=== PATIENT | female | born 1990 | race Caucasian/White ===

== ENCOUNTER 2021-01-20 10:05 | Day surgery (SDC) | payer OTHER | END 2021-01-20 18:00 | disposition home or self-care (01) | LOC: CIR.AMB 10:05 | PROVIDERS: ATTEND Obstetrics & Gynecology | DX: O02.1 Missed abortion (principal); Z20.822 Contact with and (suspected) exposure to COVID-19 ==

== ENCOUNTER 2021-11-04 10:41 | Outpatient (CLI) | payer OTHER | END 2021-11-04 11:25 | disposition home or self-care (01) | LOC: NST 10:41 | PROVIDERS: ATTEND Obstetrics & Gynecology | DX: Z34.83 Encounter for supervision of other normal pregnancy, third trimester (principal) ==

== ENCOUNTER 2021-11-10 14:20 | Inpatient (IN) | payer OTHER ==
[~2021-11-10] VITALS: Ht 162.6 cm; Wt 1.4 kg
[2021-11-10] MEDS ORDERED: OMEGA-31000 MG PO (15:39)
[2021-11-10] MEDS ORDERED: PRENATAL CAPLE1 EAC1 PO (15:39)
== END 2021-11-15 14:07 | disposition home or self-care (01) | DRG 786 ==
LOC: LDR 14:20 → O/R 11-12 09:54 → OB/GYN 11-12 10:19 → SURG-SUITE 11-12 12:16
PROVIDERS: ADMIT Obstetrics & Gynecology; ATTEND Obstetrics & Gynecology
PROC: 4A1HXCZ Monitoring of Products of Conception, Cardiac Rate, External Approach (ICD-10-PCS; 2021-11-10)
PROC: 10D00Z1 Extraction of Products of Conception, Low, Open Approach (ICD-10-PCS; principal; 2021-11-12 08:00)
DX: O14.13 Severe pre-eclampsia, third trimester (principal); O60.14X0 Preterm labor third trimester with preterm delivery third trimester, not applicable or unspecified; Z3A.34 34 weeks gestation of pregnancy; Z37.0 Single live birth; Z20.822 Contact with and (suspected) exposure to COVID-19

== ENCOUNTER 2023-12-16 16:04 | Emergency (ER) | payer OTHER ==
[~2023-12-16] VITALS: Ht 162.6 cm; Wt 64.4 kg
[~2023-12-16 16:04] MED LIST: OMEGA-31000 MG PO; PRENATAL CAPLE1 EAC1 PO
[2023-12-16] MEDS ORDERED: DHA ALGAL-900300 MG (16:38)
[2023-12-16] MEDS ORDERED: VITAMIN B-150 MG (16:38)
[2023-12-16] MEDS ORDERED: PROBIOTIC1 EAC4 (16:39)
[2023-12-16 17:51] LABS: PH,URINE 6.5 (5.0-8.0); URINE APPEARANCE Clear; URINE BILIRRUBIN Negative (NEGATIVE); URINE BLOOD Negative; URINE COLOR Yellow; URINE GLUCOSE Negative (NEGATIVE); URINE LEUKOCYTE Negative; URINE NITRATE Negative; URINE PROTEIN Negative (NEGATIVE); URINE UROBILINOGEN 0.2 E.U./dl
[2023-12-16 17:55] LABS: URINE BACTERIA 16.3 uL (0.0-1933); URINE RBC 3.1 uL (0.0-20.8)
[2023-12-16 18:17] LABS: INR 1.09; PARTIAL THROMBOPLASTIN TIME 20.5 SECONDS (22.0-34.0); PROTHROMBIN TIME 11.4 SECONDS (9.0-11.5)
[2023-12-16 18:17] LABS: URINE EPITHELIAL CELLS 0.4 uL (0.0-38.8); URINE WBC 0 uL (0.0-23.2)
[2023-12-16 18:34] LABS: CALCIUM 9.1 mg/dL (8.5-10.1); CREATININE SERUM 0.85 mg/dL (0.55-1.02); GFR 76.11; POTASSIUM 3.93 mEq/L (3.5-5.1)
[2023-12-16 18:40] LABS: HEMOGLOBIN 12.4 g/dL (12.0-15.00); MEAN CELL VOLUME 87.2 fL (80.00-100.00); MEAN CORPUSCULAR HEMOGLOBIN 29.1 pg (27.00-32.0); MEAN CORPUSCULAR HGB CONC 33.4 g/dl (32.0-36.0); PLATELET COUNT 212 K/uL (150-450); RED BLOOD COUNT 4.24 M/uL (4.00-6.00); RED CELL DISTRIBUTION WIDTH 13.5 % (11.5-14.5)
[2023-12-16] MEDS ORDERED: ACETAMINOPHEN 500 MG GEL..CAP PO ONE (18:45)
== END 2023-12-16 20:58 | disposition home or self-care (01) ==
LOC: ER 16:05
PROVIDERS: Nurse Practitioner Family
DX: O20.9 Hemorrhage in early pregnancy, unspecified (principal); Z3A.01 Less than 8 weeks gestation of pregnancy